=== PATIENT | male | born 1950 | race Caucasian/White ===

== ENCOUNTER 2016-11-20 05:20 | Emergency (ER) | payer OTHER ==
[~2016-11-20] VITALS: Ht 175.3 cm; Wt 68.0 kg
[~2016-11-20 05:20] MED LIST: ALBU18 INH; MELO-85 PO; TAM04C PO; TERA2CAP45 PO
[2016-11-20 07:00] LABS: Basophils # (auto) 0 uL; Basophils % (auto) 0.2 % (0.0-2.0); Eosinophils # (auto) 0.2 uL; Eosinophils % (auto) 1.9 % (0.0-7.0); Hematocrit 42.9 % (41.0-53.0); Hemoglobin 14.3 g/dL (13.5-17.5); Lymphocytes # (auto) 1.3 uL; Lymphocytes % (auto) 13.7 % (10.0-50.0); Mean Corpuscular Hemoglobin 32.3 pg (28.0-32.0); Mean Corpuscular Hgb Conc. 33.4 g/dL (32.0-36.0); Mean Corpuscular Volume 96.8 fL (80.0-100.0); Mean Platelet Volume 6.9 fL (7.4-10.4); Monocytes # (auto) 0.7 uL; Monocytes % (auto) 8.1 % (0.0-12.0); Neutrophils % (auto) 76.1 % (37.0-80.0); Platelet Count (auto) 355 10^3/uL (140-450); Red Cell Distribution Width 12.7 % (11.6-16.0); White Blood Cell 9.3 10^3/uL (4.4-10.8)
[2016-11-20 07:19] LABS: Albumin 3.5 g/dL (3.4-5.0); BUN/Creatinine Ratio 14.1; Calcium 8.7 mg/dL (8.5-10.1)
[2016-11-20 07:22] LABS: Bilirubin, Total 0.3 mg/dL (0.2-1.0); Total Protein 7.5 g/dL (6.4-8.2)
[2016-11-20 07:25] LABS: INR 0.96 (0.9-1.15); Partial Thromboplastin Time 27.6 sec (22.64-33.71); Prothrombin Time 9.9 sec (9.37-12.3)
[2016-11-20 07:34] LABS: B-Type Natriuretic Peptide 13.74 pg/mL (0-100)
[2016-11-20 07:52] LABS: Temperature: 22.7 C (20.0-25.0)
[2016-11-20] MEDS ORDERED: ALBUTEROL SULF 2.5 MG/0.5ML(0.5%) NEB SOLN HHN STA (08:13)
[2016-11-20] MEDS ORDERED: methylPREDNISolone SOD SUCC 125 MG/2 ML VL IV ONE (08:15)
[2016-11-20] MEDS ORDERED: ONDANSETRON HCL 4 MG/2 ML VIAL IV ONE (08:15)
[2016-11-20] MEDS ORDERED: MORPHINE SULFATE 4 MG/ML SYRG IV ONE (08:15)
[2016-11-20] MEDS ORDERED: IPRATROPIUM BROM 0.5 MG/2.5ML INH SOL NEB ONE (08:15)
[2016-11-20 08:44] VITALS: BP 130/81
== END 2016-11-20 10:13 | disposition home or self-care (01) ==
LOC: ER 05:22
DX: J44.1 Chronic obstructive pulmonary disease with (acute) exacerbation (principal); J45.909 Unspecified asthma, uncomplicated; M54.5 Low back pain; F17.210 Nicotine dependence, cigarettes, uncomplicated; N18.9 Chronic kidney disease, unspecified
CPT/HCPCS: 36415; 71010; 80053; 83605; 83735; 83880; 84484; 85025; 85610; 85730; 87040; 93005; 94644; 94761; 96374; 96375; 99285; J2270; J2405; J2930

== ENCOUNTER 2016-11-23 22:59 | Inpatient (IN) | payer OTHER ==
[~2016-11-23] VITALS: Ht 172.7 cm; Wt 71.8 kg
[2016-11-23 23:45] LABS: Basophils # (auto) 0.1 uL; Basophils % (auto) 1.1 % (0.0-2.0); Eosinophils # (auto) 0.1 uL; Eosinophils % (auto) 1.1 % (0.0-7.0); Hematocrit 44.7 % (41.0-53.0); Hemoglobin 14.9 g/dL (13.5-17.5); Lymphocytes # (auto) 1.2 uL; Lymphocytes % (auto) 13.2 % (10.0-50.0); Mean Corpuscular Hemoglobin 32.2 pg (28.0-32.0); Mean Corpuscular Hgb Conc. 33.2 g/dL (32.0-36.0); Mean Corpuscular Volume 96.8 fL (80.0-100.0); Mean Platelet Volume 6.9 fL (7.4-10.4); Monocytes # (auto) 0.8 uL; Monocytes % (auto) 8.2 % (0.0-12.0); Neutrophils # (auto) 7.1 uL; Neutrophils % (auto) 76.4 % (37.0-80.0); Platelet Count (auto) 428 10^3/uL (140-450); Red Cell Distribution Width 12.8 % (11.6-16.0); White Blood Cell 9.3 10^3/uL (4.4-10.8)
[2016-11-24 00:01] LABS: B-Type Natriuretic Peptide 15.9 pg/mL (0-100); Temperature: 22.7 C (20.0-25.0)
[2016-11-24 00:30] LABS: Albumin 3.8 g/dL (3.4-5.0); BUN/Creatinine Ratio 15.2; Calcium 9.2 mg/dL (8.5-10.1); Magnesium 2.4 mg/dL (1.6-2.6); Potassium 4.5 mmol/L (3.5-5.1)
[2016-11-24 00:32] LABS: Bilirubin, Total 0.2 mg/dL (0.2-1.0); Total Protein 7.8 g/dL (6.4-8.2)
[2016-11-24 01:05] LABS: Urine RBC None Seen /hpf (0 - 3)
[2016-11-24 01:17] LABS: Urine Bilirubin Negative (Negative); Urine Blood Negative /uL (Negative); Urine Color Yellow (Yellow); Urine Glucose Normal (Normal); Urine Ketone Negative (Negative); Urine Nitrite Negative (Negative); Urine Urobilinogen Normal (Negative)
[2016-11-24] MEDS ORDERED: methylPREDNISolone SOD SUCC 125 MG/2 ML VL IV ONE (02:15)
[2016-11-24] MEDS ORDERED: IPRATROPIUM BROM 0.5 MG/2.5ML INH SOL NEB ONE (02:15)
[2016-11-24] MEDS ORDERED: ALBUTEROL SULF 2.5 MG/0.5ML(0.5%) NEB SOLN NEB ONE (02:15)
[2016-11-24] MEDS ORDERED: MORPHINE SULFATE 4 MG/ML SYRG IV ONE (03:00)
[2016-11-24] MEDS ORDERED: ONDANSETRON HCL 4 MG/2 ML VIAL IV ONE (03:00)
[2016-11-24] MEDS ORDERED: DOCUSATE SOD 100 MG CAP PO PRN (04:30)
[2016-11-24] MEDS ORDERED: ACETAMINOPHEN 325 MG TAB PO PRN (04:30)
[2016-11-24] MEDS ORDERED: TEMAZEPAM 15 MG CAP PO PRN (04:30)
[2016-11-24] MEDS ORDERED: ONDANSETRON HCL 4 MG/2 ML VIAL IV PRN (04:30)
[2016-11-24 05:20] VITALS: BP 148/79
[2016-11-24] MEDS: IPRATROPIUM BROM 0.5 MG/2.5ML INH SOL NEB PRN ×3 (08:00→23:06)
[2016-11-24] MEDS: ALBUTEROL SULF 2.5 MG/0.5ML(0.5%) NEB SOLN NEB PRN ×3 (08:00→23:06)
[2016-11-24 08:18] VITALS: BP 148/75
[2016-11-24 09:00] VITALS: BP 127/70
[2016-11-24] MEDS ORDERED: MORPHINE SULF INJ 2 MG/ML SYRINGE 1ML IV PRN (09:30)
[2016-11-24] MEDS ORDERED: MILK OF MAGNESIA 30ML SUSP PO PRN (09:30)
[2016-11-24] MEDS ORDERED: MAGNESIUM CITRATE SOLUTION 300 ML BTL PO ONE (09:30)
[2016-11-24] MEDS ORDERED: methylPREDNISolone SOD SUCC 125 MG/2 ML VL IV SCH (10:00)
[2016-11-24] MEDS: cefTRIAXone 1GM/50ML D5W 50 ML IV SCH (10:51)
[2016-11-24] MEDS: AZITHROMYCIN 500MG/D5W 250ML 250 ML IV SCH (10:52)
[2016-11-24] MEDS: ENOXAPARIN SOD 40 MG/0.4 ML SYRINGE SC SCH (10:52)
[2016-11-24] MEDS: methylPREDNISolone SOD SUCC 125 MG/2 ML VL IV SCH ×2 (10:52→17:27)
[2016-11-24] MEDS: HYDROcodone-ACET 5/325MG TAB PO PRN ×2 (10:53→22:20)
[2016-11-24] MEDS: FAMOTIDINE 20 MG TAB PO SCH ×2 (10:53→22:20)
[2016-11-24] MEDS: DOCUSATE SOD 100 MG CAP PO SCH ×2 (10:53→22:20)
[2016-11-24 13:00] VITALS: BP 127/66
[2016-11-24 17:00] VITALS: BP 130/75
[2016-11-24] MEDS: TAMSULOSIN HYDROCHLORIDE 0.4 MG CAP PO SCH (17:26)
[2016-11-24 22:00] VITALS: BP 121/72
[2016-11-24] MEDS ORDERED: TERAZOSIN HCL 1 MG CAP PO SCH (22:00)
[2016-11-25] MEDS: methylPREDNISolone SOD SUCC 125 MG/2 ML VL IV SCH ×3 (01:39→17:22)
[2016-11-25] MEDS: ALBUTEROL SULF 2.5 MG/0.5ML(0.5%) NEB SOLN NEB PRN ×2 (04:49→10:00)
[2016-11-25] MEDS: IPRATROPIUM BROM 0.5 MG/2.5ML INH SOL NEB PRN ×2 (04:49→10:00)
[2016-11-25 05:00] VITALS: BP 115/72
[2016-11-25 05:56] LABS: Basophils # (auto) 0 uL; Basophils % (auto) 0.3 % (0.0-2.0); Eosinophils # (auto) 0 uL; Eosinophils % (auto) 0.1 % (0.0-7.0); Hematocrit 42.9 % (41.0-53.0); Lymphocytes # (auto) 0.7 uL; Lymphocytes % (auto) 8.5 % (10.0-50.0); Mean Corpuscular Hgb Conc. 32.7 g/dL (32.0-36.0); Mean Corpuscular Volume 97.9 fL (80.0-100.0); Mean Platelet Volume 7.1 fL (7.4-10.4); Monocytes # (auto) 0.4 uL; Monocytes % (auto) 4.3 % (0.0-12.0); Neutrophils # (auto) 7.3 uL; Neutrophils % (auto) 86.8 % (37.0-80.0); Platelet Count (auto) 349 10^3/uL (140-450); Red Cell Distribution Width 11.9 % (11.6-16.0); White Blood Cell 8.4 10^3/uL (4.4-10.8)
[2016-11-25 06:51] LABS: Albumin 3.5 g/dL (3.4-5.0); BUN/Creatinine Ratio 24.3; Bilirubin, Total 0.3 mg/dL (0.2-1.0); Calcium 9.1 mg/dL (8.5-10.1); Potassium 5.2 mmol/L (3.5-5.1)
[2016-11-25] MEDS: HYDROcodone-ACET 5/325MG TAB PO PRN ×3 (08:06→21:46)
[2016-11-25] MEDS: cefTRIAXone 1GM/50ML D5W 50 ML IV SCH (08:07)
[2016-11-25 09:00] VITALS: BP 116/69
[2016-11-25] MEDS: ENOXAPARIN SOD 40 MG/0.4 ML SYRINGE SC SCH (10:32)
[2016-11-25] MEDS: AZITHROMYCIN 500MG/D5W 250ML 250 ML IV SCH (10:33)
[2016-11-25] MEDS: DOCUSATE SOD 100 MG CAP PO SCH ×2 (10:34→21:46)
[2016-11-25] MEDS: FAMOTIDINE 20 MG TAB PO SCH ×2 (10:34→21:45)
[2016-11-25 12:57] VITALS: BP 124/72
[2016-11-25] MEDS ORDERED: FLEET ENEMA(ADULT) 135 ML PR ONE (13:30)
[2016-11-25] MEDS ORDERED: SODIUM POLYSTYRENE SULF 15GM/60ML SUSP PO ONE (13:30)
[2016-11-25] MEDS ORDERED: GOLYTELY 4L KIT PO ONE (13:30)
[2016-11-25] MEDS: ALBUTEROL SULF 2.5 MG/0.5ML(0.5%) NEB SOLN NEB SCH ×3 (14:36→22:45)
[2016-11-25] MEDS: IPRATROPIUM BROM 0.5 MG/2.5ML INH SOL NEB SCH ×3 (14:36→22:45)
[2016-11-25 17:00] VITALS: BP 126/91
[2016-11-25] MEDS: TAMSULOSIN HYDROCHLORIDE 0.4 MG CAP PO SCH (17:22)
[2016-11-25 22:17] VITALS: BP 133/78
[2016-11-26] MEDS: methylPREDNISolone SOD SUCC 125 MG/2 ML VL IV SCH ×2 (01:50→09:59)
[2016-11-26] MEDS: IPRATROPIUM BROM 0.5 MG/2.5ML INH SOL NEB SCH ×3 (02:58→09:46)
[2016-11-26] MEDS: ALBUTEROL SULF 2.5 MG/0.5ML(0.5%) NEB SOLN NEB SCH ×3 (02:58→09:46)
[2016-11-26 04:53] VITALS: BP 119/76
[2016-11-26 07:13] LABS: Potassium 4.3 mmol/L (3.5-5.1)
[2016-11-26 07:16] LABS: BUN/Creatinine Ratio 24.7; Calcium 8.3 mg/dL (8.5-10.1)
[2016-11-26] MEDS: cefTRIAXone 1GM/50ML D5W 50 ML IV SCH (07:43)
[2016-11-26] MEDS: HYDROcodone-ACET 5/325MG TAB PO PRN (07:43)
[2016-11-26 09:00] VITALS: BP 116/72
[2016-11-26 09:59] VITALS: BP 116/72
[2016-11-26] MEDS: ENOXAPARIN SOD 40 MG/0.4 ML SYRINGE SC SCH (09:59)
[2016-11-26] MEDS: FAMOTIDINE 20 MG TAB PO SCH (09:59)
[2016-11-26] MEDS: AZITHROMYCIN 500MG/D5W 250ML 250 ML IV SCH (09:59)
[2016-11-26] MEDS: DOCUSATE SOD 100 MG CAP PO SCH (09:59)
== END 2016-11-26 10:55 | disposition home health service (06) | DRG 189 ==
LOC: EDBD 22:59 → ER 23:01 → OVERFLOW 23:02 → WEST WING 11-24 05:46
PROVIDERS: ADMIT Nurse Practitioner; ATTEND Family Medicine
DX: J96.21 Acute and chronic respiratory failure with hypoxia (principal); J44.1 Chronic obstructive pulmonary disease with (acute) exacerbation; E87.5 Hyperkalemia; M54.5 Low back pain; N18.9 Chronic kidney disease, unspecified; I12.9 Hypertensive chronic kidney disease with stage 1 through stage 4 chronic kidney disease, or unspecified chronic kidney disease; F17.210 Nicotine dependence, cigarettes, uncomplicated; J45.909 Unspecified asthma, uncomplicated; Z82.5 Family history of asthma and other chronic lower respiratory diseases; Z98.890 Other specified postprocedural states; Z80.0 Family history of malignant neoplasm of digestive organs
CPT/HCPCS: 36415; 71010; 80048; 80053; 81001; 83735; 83880; 84484; 85025; 85379; 93005; 94640; 94761; 96374; 96375; J0696; J2405

== ENCOUNTER 2016-11-26 20:44 | Emergency (ER) | payer OTHER ==
[~2016-11-26] VITALS: Ht 175.3 cm; Wt 72.6 kg
[2016-11-26 21:19] LABS: Basophils # (auto) 0 uL; Basophils % (auto) 0.1 % (0.0-2.0); Eosinophils # (auto) 0 uL; Hematocrit 43.5 % (41.0-53.0); Hemoglobin 14.6 g/dL (13.5-17.5); Mean Corpuscular Hemoglobin 32.4 pg (28.0-32.0); Mean Corpuscular Hgb Conc. 33.5 g/dL (32.0-36.0); Mean Corpuscular Volume 96.8 fL (80.0-100.0); Mean Platelet Volume 6.7 fL (7.4-10.4); Monocytes # (auto) 1.5 uL; Monocytes % (auto) 11.1 % (0.0-12.0); Neutrophils # (auto) 11.1 uL; Neutrophils % (auto) 81.8 % (37.0-80.0); Platelet Count (auto) 506 10^3/uL (140-450); Red Cell Distribution Width 12.7 % (11.6-16.0); White Blood Cell 13.6 10^3/uL (4.4-10.8)
[2016-11-26 21:34] LABS: Albumin 3.7 g/dL (3.4-5.0); BUN/Creatinine Ratio 19.8; Calcium 8.9 mg/dL (8.5-10.1); Magnesium 2.6 mg/dL (1.6-2.6); Potassium 4.6 mmol/L (3.5-5.1)
[2016-11-26 21:36] LABS: Bilirubin, Total 0.1 mg/dL (0.2-1.0); Total Protein 7.3 g/dL (6.4-8.2)
[2016-11-27] MEDS ORDERED: methylPREDNISolone SOD SUCC 125 MG/2 ML VL IV ONE (02:00)
[2016-11-27] MEDS ORDERED: MORPHINE SULFATE 4 MG/ML SYRG IV ONE (02:00)
[2016-11-27] MEDS ORDERED: IPRATROPIUM BROM 0.5 MG/2.5ML INH SOL NEB ONE (02:00)
[2016-11-27] MEDS ORDERED: ONDANSETRON HCL 4 MG/2 ML VIAL IV ONE (02:00)
[2016-11-27] MEDS ORDERED: ALBUTEROL SULF 2.5 MG/0.5ML(0.5%) NEB SOLN NEB ONE (02:00)
[2016-11-27 02:54] LABS: B-Type Natriuretic Peptide 18.7 pg/mL (0-100); Temperature: 21.9 C (20.0-25.0)
[2016-11-27 05:18] VITALS: BP 107/63
== END 2016-11-27 05:31 | disposition home or self-care (01) ==
LOC: ER 20:51
DX: J44.1 Chronic obstructive pulmonary disease with (acute) exacerbation (principal); J45.909 Unspecified asthma, uncomplicated; F17.210 Nicotine dependence, cigarettes, uncomplicated; I12.9 Hypertensive chronic kidney disease with stage 1 through stage 4 chronic kidney disease, or unspecified chronic kidney disease; N18.9 Chronic kidney disease, unspecified; D72.829 Elevated white blood cell count, unspecified
CPT/HCPCS: 36415; 36600; 71010; 80053; 82805; 83735; 83880; 84484; 85025; 85379; 93005; 94640; 96374; 96375; 99285; J2270; J2405; J2930

== ENCOUNTER 2016-11-29 22:29 | Emergency (ER) | payer OTHER ==
[~2016-11-29] VITALS: Ht 172.7 cm; Wt 65.8 kg
[2016-11-29 23:13] LABS: Basophils # (auto) 0 uL; Basophils % (auto) 0.1 % (0.0-2.0); Eosinophils # (auto) 0.1 uL; Eosinophils % (auto) 0.7 % (0.0-7.0); Hematocrit 48.3 % (41.0-53.0); Hemoglobin 15.9 g/dL (13.5-17.5); Lymphocytes # (auto) 1.3 uL; Lymphocytes % (auto) 7.9 % (10.0-50.0); Mean Corpuscular Hemoglobin 31.6 pg (28.0-32.0); Mean Corpuscular Hgb Conc. 32.8 g/dL (32.0-36.0); Mean Corpuscular Volume 96.2 fL (80.0-100.0); Mean Platelet Volume 6.6 fL (7.4-10.4); Monocytes # (auto) 1.4 uL; Monocytes % (auto) 8.7 % (0.0-12.0); Neutrophils # (auto) 13.5 uL; Neutrophils % (auto) 82.6 % (37.0-80.0); Platelet Count (auto) 448 10^3/uL (140-450); Red Cell Distribution Width 12.7 % (11.6-16.0); White Blood Cell 16.3 10^3/uL (4.4-10.8)
[2016-11-29 23:32] LABS: Albumin 3.6 g/dL (3.4-5.0); BUN/Creatinine Ratio 27.1; Calcium 8.4 mg/dL (8.5-10.1); Potassium 4.8 mmol/L (3.5-5.1)
[2016-11-29 23:35] LABS: Bilirubin, Total 0.3 mg/dL (0.2-1.0); Total Protein 7.3 g/dL (6.4-8.2)
[2016-11-29] MEDS ORDERED: IPRATROPIUM BROM 0.5 MG/2.5ML INH SOL NEB ONE (23:45)
[2016-11-29] MEDS ORDERED: ALBUTEROL SULF 2.5 MG/0.5ML(0.5%) NEB SOLN NEB ONE (23:45)
[2016-11-30] MEDS ORDERED: ALBUTEROL SULF 2.5 MG/0.5ML(0.5%) NEB SOLN NEB ONE (01:15)
[2016-11-30] MEDS ORDERED: SODIUM CHLORIDE 0.9% 250 ML IV ONE ×2 (01:15→01:30)
[2016-11-30] MEDS ORDERED: IPRATROPIUM BROM 0.5 MG/2.5ML INH SOL NEB ONE (01:15)
[2016-11-30] MEDS ORDERED: methylPREDNISolone SOD SUCC 125 MG/2 ML VL IV ONE (01:15)
[2016-11-30 02:18] VITALS: BP 155/78
[2016-11-30] MEDS ORDERED: MORPHINE SULFATE 4 MG/ML SYRG ONE (02:42)
[2016-11-30] MEDS ORDERED: MORPHINE SULFATE 4 MG/ML SYRG IM ONE (02:45)
== END 2016-11-30 02:53 | disposition home or self-care (01) ==
LOC: EDBD 22:29 → ER 22:38
DX: J44.1 Chronic obstructive pulmonary disease with (acute) exacerbation (principal); D72.829 Elevated white blood cell count, unspecified; M54.9 Dorsalgia, unspecified; G89.29 Other chronic pain; I12.9 Hypertensive chronic kidney disease with stage 1 through stage 4 chronic kidney disease, or unspecified chronic kidney disease; N18.9 Chronic kidney disease, unspecified; J45.909 Unspecified asthma, uncomplicated; Z87.891 Personal history of nicotine dependence; Z93.0 Tracheostomy status; Z99.81 Dependence on supplemental oxygen
CPT/HCPCS: 36415; 71010; 80053; 84484; 85025; 85049; 93005; 94640; 96361; 96372; 96374; 99285; J2270; J2930